=== PATIENT | male | born 1995 | race Caucasian/White ===

== ENCOUNTER 2018-02-17 09:22 | Emergency (ER) | payer OTHER, SELFPAY ==
[2018-02-17 09:41] VITALS: BP 122/80; PULSE 84; RESP 18; TEMP 36.8; O2SAT 99; BMI 27.0
--- NOTE | 2018-02-17 13:08 | ED_ITS ---
HPI - Ear Problem <ESTHER Tavera - Last Filed: 02/17/18 21:25> General Chief complaint: Ear Stated complaint: Swelling in right ear Time Seen by Provider: 02/17/18 09:30 Source: patient Mode of arrival: ambulatory Limitations: no limitations History of Present Illness HPI Narrative: 22-year-old healthy male here for complaint of swelling and redness to lobule of auricle and inferior base of the auricle for the last several days. He denies any trauma to the area. He denies any drainage from the area. No fevers no chills. Increased pain with palpation to the area. He reports increased swelling over the past day. He denies any inner ear pain or ear canal pain. He denies any other concerns or complaints at this time. MD Complaint: ear pain Related Data Previous Rx's Medication Instructions Recorded clindamycin HCl 300 mg PO QID #28 cap 02/17/18 Allergies Allergy/AdvReac Type Severity Reaction Status Date / Time No Known Drug Allergies Allergy Verified 02/17/18 09:45 Review of Systems <ESTHER Tavera - Last Filed: 02/17/18 21:25> Constitutional Denies chills, Denies fever(s), Denies lethargy and Denies weakness Eyes Denies change in vision, Denies eye discharge, Denies irritation and Denies loss of vision ENT Comments: Pain and redness to right ear Cardiovascular Denies chest pain, Denies irregular heart rhythm, Denies lightheadedness, Denies palpitations, Denies dyspnea, Denies dyspnea on exertion and Denies orthopnea Respiratory Denies cough, Denies dyspnea, Denies dyspnea on exertion and Denies wheezing Gastrointestinal Gastrointestinal: Denies abdominal pain, Denies change in bowel habits, Denies diarrhea, Denies nausea and Denies vomiting Genitourinary Denies hematuria, Denies flank pain, Denies urinary incontinence and Denies urinary urgency Musculoskeletal Denies back pain, Denies muscle weakness, Denies numbness and Denies tingling Integumentary/Breasts Denies pruritus, Denies erythema, Denies rash and Denies wounds Neurologic Denies confusion, Denies loss of vision, Denies numbness, Denies tingling and Denies weakness Psychiatric Denies anxiety, Denies confusion, Denies depression, Denies homicidal ideation and Denies suicidal ideation Endocrine Denies palpitations Hematologic/Lymphatic Denies easy bruising Allergic/Immunologic Denies wheezing Exam <ESTHER Tavera - Last Filed: 02/17/18 21:25> Initial Vital Signs Initial Vital Signs: Vital Signs Temperature 98.3 F 02/17/18 09:41 Pulse Rate 84 02/17/18 09:41 Respiratory Rate 18 02/17/18 09:41 Blood Pressure 122/80 H 02/17/18 09:41 Pulse Oximetry 99 02/17/18 09:41 Const General: cooperative and well developed Nutritional Appearance: well nourished Orientation: alert, awake, oriented x3 and not confused HENMT Ears: TM's normal bilaterally and other (Slight swelling to the lobule of the right auricle. Erythema and swelling to the inferior base of the auricle of right ear. Bilateral external canals are normal) Mouth: oral mucosae normal and moist mucous membranes Eyes Conjunctivae: conjunctivae normal Sclera: sclerae normal Pupils: PERRL EOM: EOM intact bilaterally Resp Effort & Inspection: normal respiratory effort, able to speak in complete sentences, no respiratory distress and no use of accessory muscles Auscultation: clear to auscultation bilaterally, no rales, no rhonchi and no wheezes Cardio Rate: regular rate Rhythm: regular rhythm Heart Sounds: no click, no gallops, no murmurs and no rubs Pulses: normal peripheral pulses Skin General: No jaundice and No petechiae Neuro General: alert, oriented x3, gait normal and no focal motor deficits Speech: speech normal <Xu Rendon MD - Last Filed: 02/18/18 08:40> Initial Vital Signs Initial Vital Signs: Vital Signs Temperature 98.3 F 02/17/18 09:41 Pulse Rate 84 02/17/18 09:41 Respiratory Rate 18 02/17/18 09:41 Blood Pressure 122/80 H 02/17/18 09:41 Pulse Oximetry 99 02/17/18 09:41 Procedures <ESTHER Tavera - Last Filed: 02/17/18 21:25> Abscess I/D Site: other (Abscess to base of right auricle ) Side (if applicable): right Local Anesthetic: lidocaine 1% Amount of anesthesia used (mL): 2 Technique: needle aspiration Amount of fluid expressed (mL): 1.5 Irrigation: No Packing used?: none Course <ESTHER Tavera - Last Filed: 02/17/18 21:25> Orders Ordered: ED Orders 02/17/18 13:00 Wound Culture and Gram Stain Stat Vital Signs - 8 hr 02/17/18 13:30 Temperature 98.1 F Pulse Rate 78 Respiratory Rate 14 Blood Pressure [Left Arm] 120/70 Pulse Oximetry 99 <Xu Rendon MD - Last Filed: 02/18/18 08:40> Orders Ordered: ED Orders 02/17/18 13:00 Wound Culture and Gram Stain Stat Vital Signs - 8 hr 02/17/18 13:30 Temperature 98.1 F Pulse Rate 78 Respiratory Rate 14 Blood Pressure [Left Arm] 120/70 Pulse Oximetry 99 Medical Decision Making <ESTHER Tavera - Last Filed: 02/17/18 21:25> MDM Narrative Medical decision making narrative: Abscess to the base of the right auricle was anesthetized using 2 mL of 1% lidocaine. Needle aspiration was obtained obtaining 1.5 mL of purulent drainage. Drainage was sent to lab for culture and sensitivity. Discussed case with ENT who will follow up with patient in the next few days. Patient to call the office tomorrow to schedule follow-up appointment. He is placed on clindamycin to treat for abscess. Over-the- counter Tylenol Motrin as needed for any discomfort. Light duty for the next couple days to prevent wearing his hearing protection until symptoms resolve. Return emergency room for worsening symptoms Discharge Plan Departure Patient Disposition: Home Clinical Impression: Abscess of right external ear Discharge Date/Time: 02/17/18 13:31 Interventions: ED Discharge Assessment Last Done: 02/17/18 13:31 Instructions: DI for Skin Abscess Activity Restrictions/Additional Instructions: Abscess to external right ear was incised and drained today obtaining some purulent drainage from the area. You are placed on an antibiotic treat for the infection use as directed. Call ENT tomorrow to schedule follow-up appointment the next few days for further evaluation and treatment. Use [id number] Tylenol Motrin as needed for any discomfort. Light duty for the next few days see do not have to wear ear protection to healthy area heal better. For any worsening symptoms return to the emergency room. Prescriptions: New clindamycin HCl 300 mg capsule 300 mg PO QID Qty: 28 RF: 0 Referrals: Elliott Green MD [Physician] - Stand Alone Forms: Work/School Restrictions <Xu Rendon MD - Last Filed: 02/18/18 08:40> Sign Out Provider Sign Out Attestation: The PA/SURGERY SPECIALIST functioned independently for the care of this pt, I was available, but not asked to participate in care. I am unable to determine appropriateness of management without personally examining the pt.
[2018-02-17 13:30] VITALS: BP 120/70; PULSE 78; RESP 14; TEMP 36.7; O2SAT 99
== END 2018-02-17 13:31 | disposition home or self-care (01) ==
PROVIDERS: Emergency Provider Nurse Practitioner Family
DX: H60.01 Abscess of right external ear (principal)
CPT/HCPCS: 10060; 87070; 87077; 87147; 87186; 87205; 99282

== ENCOUNTER → 2019-01-22 17:37 | Outpatient (CLI) | payer OTHER, SELFPAY ==
--- NOTE | 2019-01-22 | DI.MRI.S_ITS ---
PROCEDURE: MR ANKLE RT WO CON INDICATIONS: RIGHT ANKLE PAIN TECHNIQUE: Noncontrast sagittal T1 spin echo and T2 fast spin echo with fat saturation, axial proton density fast spin echo and T2 fast spin echo with fat saturation, coronal T1 spin echo and T2 fast spin echo with fat saturation through the ankle/hindfoot. COMPARISON: None. FINDINGS: Image quality: There is mild inhomogeneous fat saturation. Bones and joints: No bone marrow contusions or fractures. No hindfoot coalitions. There is a small focus of subchondral edema posteriorly in the distal tibia along the tibiotalar joint. No osteochondral lesions of the talar dome. There is a small tibiotalar joint effusion. Medial structures: The posterior tibialis, flexor digitorum longus, and flexor hallucis longus tendons are intact. The posterior tibial neurovascular bundle appears normal within the tarsal tunnel, without extrinsic mass effect. The deltoid and spring ligaments appear intact. Lateral structures: The anterior talofibular, calcaneofibular, and posterior talofibular ligaments appear intact. More superiorly, the anterior and posterior tibiofibular ligaments appear intact but thickened which may represent sequelae of a prior sprain,. The intermalleolar ligament appears intact. The tibiofibular syndesmosis is normal in width at 2 mm or less. The peroneus longus and brevis tendons demonstrate normal location and morphology. Adjacent bony peroneal tubercle and retrotrochlear prominence are normal in size. The sinus tarsi demonstrates normal fatty signal, without edema, fibrosis, or cyst formation. The calcaneonavicular and calcaneocuboid components of the bifurcate ligament appear intact. The dorsal calcaneocuboid ligament appears intact. Anterior structures: The tibialis anterior, extensor hallucis longus, and extensor digitorum longus tendons appear intact. The dorsal talonavicular ligament appears intact. Posterior and plantar structures: Achilles tendon is intact. Medial and lateral bands of the plantar fascia are of normal thickness. No abductor digiti quinti muscle atrophy to suggest Webb neuropathy. IMPRESSION: 1. Small tibiotalar joint effusion. 2. Small focus of subchondral edema posteriorly in the distal tibia along the tibiotalar joint may represent sequelae of focal cartilage degeneration or reactive changes. No discrete osteochondral lesions. 3. Thickening of the anterior and posterior talofibular ligaments may represent sequelae of a prior sprain. Dictated by: Rohit Whyte M.D. on 01/23/2019 at 10:03 Approved by: Rohit Whyte M.D. on 01/23/2019 at 10:21
== END ==
PROVIDERS: Visit Provider General Practice
DX: M25.571 Pain in right ankle and joints of right foot (principal); M25.471 Effusion, right ankle; R60.9 Edema, unspecified
CPT/HCPCS: 73721